=== PATIENT | male | born 1955 | race Caucasian/White ===

== ENCOUNTER → 2018-01-25 10:41 | Outpatient (CLI) | payer MEDICAID, OTHER, SELFPAY ==
[2018-01-25 10:41] VITALS: PULSE 101; PULSE 104; PULSE 109; PULSE 110; PULSE 111; PULSE 80; PULSE 84; O2SAT 83; O2SAT 85; O2SAT 90; O2SAT 92; O2SAT 97
--- NOTE | 2018-01-25 12:14 | CPS ---
PT ARRIVED FROM DR. PATEL OFFICE. PRE TEST SPO2 ON ROOM AIR WAS 85%. PT PLACED ON 2L AND SPO2 INCREASED TO 94% IN WHICH THE TEST WAS INITIATED THEN. AT MINUTE TWO PT INCREASED TO 3L, MINUTE 3 INCREASED TO 4L AND MINUTE FOUR INCREASED TO 6L FOR LOW SPO2. CHRISSY AVALOS AT DR. PATEL OFFICE AWARE AND INFORMED NO FACE TO FACE NEEDED TO BE DONE THAT IN[place] WOULD [place] [facility]. PT INFORMED OF ABOVE AND KNOWS [facility] [place] AT [place]. NO FURTHER NEEDS AT THIS TIME.
--- NOTE | 2018-01-26 09:23 | WT_ITS ---
PSN 6 Minute Walk Test - 6 Minute Walk Test 6 Minute Walk Test: 6 Minute Walk Test PSN:6-Minute Walk Test Start: 01/25/18 12: 09 Freq: Status: Active Protocol: RESP.6MINW Document 01/25/18 10:41 [facility] [place] (Rec: 01/25/18 12:17 [facility] [place] [id number]) 6 Minute Walk Test Date Performed 01/25/18 Time Performed 10:20 Height 5 ft 4 in Weight: 193 lb Weight in Pounds 193.[address]: Elie Hines Assistive device used: None Pre-test Oxygen Delivery Method Room Air Pulse Ox (%) 85 Pulse Rate (60-100 beats/min) 80 Dyspnea Doug Scale (0-10) 3 Exertion Doug Scale (6-20) 8 1st minute Oxygen Flow Rate (L/min) (L/min) 2 Oxygen Delivery Method Nasal Cannula Pulse Ox (%) 90 Pulse Rate (60-100 beats/min) 104 H Number of Rests Taken 0 2nd minute Oxygen Flow Rate (L/min) (L/min) 2 Oxygen Delivery Method Nasal Cannula Pulse Ox (%) 85 Pulse Rate (60-100 beats/min) 109 H Number of Rests Taken 0 3rd minute Oxygen Flow Rate (L/min) (L/min) 3 Oxygen Delivery Method Nasal Cannula Pulse Ox (%) 83 Pulse Rate (60-100 beats/min) 104 H Number of Rests Taken 0 4th minute Oxygen Flow Rate (L/min) (L/min) 4 Oxygen Delivery Method Nasal Cannula Pulse Ox (%) 85 Pulse Rate (60-100 beats/min) 110 H Number of Rests Taken 0 5th minute Oxygen Flow Rate (L/min) (L/min) 6 Oxygen Delivery Method Nasal Cannula Pulse Ox (%) 92 Pulse Rate (60-100 beats/min) 101 H Number of Rests Taken 0 6th minute Oxygen Flow Rate (L/min) (L/min) 6 Oxygen Delivery Method Nasal Cannula Pulse Ox (%) 92 Pulse Rate (60-100 beats/min) 111 H Number of Rests Taken 0 Post-test Oxygen Flow Rate (L/min) (L/min) 6 Oxygen Delivery Method Nasal Cannula Pulse Ox (%) 97 Pulse Rate (60-100 beats/min) 84 Dyspnea Doug Scale (0-10) 5 Exertion Doug Scale (6-20) 13 Number of Rests Taken 0 Full Laps Walked 12 Partial Lap, Number of Tiles Walked 17 Total Distance Walked (ft) 725 01/25/18 12:14 Cardiopulmonary Services by Krista Batres PT ARRIVED FROM DR. JORGE ESTEBAN. PRE TEST SPO2 ON ROOM AIR WAS 85%. PT PLACED ON 2L AND SPO2 INCREASED TO 94% IN WHICH THE TEST WAS INITIATED THEN. AT MINUTE TWO PT INCREASED TO 3L, MINUTE 3 INCREASED TO 4L AND MINUTE FOUR INCREASED TO 6L FOR LOW SPO2. CHRISSY AVALOS AT DR. HINES OFFICE AWARE AND INFORMED NO FACE TO FACE NEEDED TO BE DONE THAT INFORMATION WOULD BE FAXED TO [facility] FOR HOME OXYGEN SET UP. PT INFORMED OF ABOVE AND KNOWS [facility] [place]. NO FURTHER NEEDS AT THIS TIME. Initialized on 01/25/18 12:14 - END OF NOTE - Interpretation Interpretation: The patient ambulated 725 feet over the course of 6 minutes beginning on room air without assistive devices or breaks. Pretesting oxygen saturation was noted to be 85% on room air. The patient was placed on 2 L/min prior to testing. Throughout the course of testing, the patient experienced multiple oxygen desaturations and required an escalation in his supplemental flow rate to 6 L/min. At a flow rate of 6 L/min, the patient was able to complete the remainder of the test while maintaining oxygen saturations at or above 88%. He did develop physiologic tachycardia with exertion. There was evidence of impaired walk distance. - Recommendations Recommendations: 2 L/min of supplemental oxygen should be utilized at rest and 6 L/min should be utilized with exertion. Close interval follow-up is recommended.
== END ==
PROVIDERS: Visit Provider Internal Medicine Critical Care Medicine
DX: J43.2 Centrilobular emphysema (principal); J96.11 Chronic respiratory failure with hypoxia
CPT/HCPCS: 94618

== ENCOUNTER → 2018-01-29 10:50 | Outpatient (CLI) | payer MEDICAID, SELFPAY ==
--- NOTE | 2018-01-29 14:44 | PFTCOMP_ITS ---
COMPLETE PULMONARY FUNCTION TEST INTERPRETATION Brief HPI: Patient is a 62 year old male, currently under the care of myself, who presents to [facility] for complete pulmonary function tests secondary to diagnosis of respiratory failure. Respiratory therapist reports good effort and reproducible results. Interpretation: Forced expiration spirometry shows a very severe large airways obstructive ventilatory defect with an FEV1 of 36 % predicted. There is no significant bronchodilator response by ATS criteria. Spirograms are of good quality and plateau slowly, indicating slowly emptying areas of the lungs. The respiratory flow volume loop shows decreased expiratory flow rates at all lung volumes consistent with airway obstruction. Lung volumes by body plethysmography show an elevated total lung capacity at 7.03 L, 135 % predicted. FRC and RV are elevated out of proportion. Lung volume measurements are consistent with hyperinflation and air-trapping. Diffusion capacity by carbon monoxide is decreased at 26 % predicted. The airway resistance is elevated. No previous pulmonary function tests were available for review. Impression: Irreversible very severe large airways obstructive ventilatory defect with a symmetric reduction in diffusing capacity and resulting in air trapping with hyperinflation. These findings are consistent with advanced COPD.
== END ==
PROVIDERS: Visit Provider Internal Medicine Critical Care Medicine
DX: J96.11 Chronic respiratory failure with hypoxia (principal); J43.2 Centrilobular emphysema
CPT/HCPCS: 94060; 94726; 94729

== ENCOUNTER → 2018-02-28 11:05 | Outpatient (CLI) | payer OTHER, SELFPAY ==
--- NOTE | 2018-02-28 11:06 | ECHOD_ITS ---
Reason For Study: PHTN Procedure This was a 2D Doppler, Color Flow transthoracic echocardiogram. The study was technically difficult. PT sat upright for exam due to SOB and back cramps. Exam performed in department. Left Ventricle Normal LV size. Left ventricular systolic function is normal. The estimated ejection fraction is 60 %. Transmitral diastolic flow velocities suggest mild (stage 1) diastolic dysfunction (reversed pattern). No regional wall motion abnormalities noted. Right Ventricle Normal RV size. Normal systolic function. Atria Normal left atrium. Normal right atrium. Mitral Valve Mitral valve not well visualized. Tricuspid Valve The tricuspid valve is not well visualized. Mild (1+) tricuspid valve insufficiency. Pulmonary artery systolic pressure is 28 mmHg. Aortic Valve Trisinus/trileaflet aortic valve. Mild focal aortic valve calcification. Pulmonic Valve The pulmonic valve is not well visualized. Great Vessels Normal aortic root. The pulmonary artery is normal size. Inferior vena cava collapse with respiration. Pericardium/Pleural No pericardial effusion. MMode/2D Measurements & Calculations LVIDd: 4.2 cm IVSd: 1.1 cm Ao root diam: 3.4 cm LVIDs: 3.0 cm LVPWd: 1.1 cm LA dimension: 3.5 cm RVDd: 3.7 cm FS: 29.7 % LAV(MOD-bp): 46.4 ml LA A4 area: 17.2 cm2 RA A4 area: 14.1 cm2 LAV(MOD-bp) Indexed: 24.1 ml/m2 LAV(MOD-sp2): 44.8 ml LAV(MOD-sp4): 43.5 ml Doppler Measurements & Calculations MV E max zia: 53.8 cm/sec Lat Peak E' Zia: 8.8 cm/sec Med Peak E' Zia: 8.1 cm/sec MV A max zia: 73.9 cm/sec E/E' lat: 6.1 E/E' med: 6.7 MV E/A: 0.73 Ao V2 max: 127.0 cm/sec LV V1 max: 80.3 cm/sec PA V2 max: 99.9 cm/sec Ao max P.5 mmHg LV V1 max P.6 mmHg TR max zia: 244.6 cm/sec TR max P.9 mmHg Interpretation Summary Normal LV size. Left ventricular systolic function is normal. The estimated ejection fraction is 60 %. Mild (1+) tricuspid valve insufficiency. Pulmonary artery systolic pressure is 28 mmHg. Ordering Physician: Elie Hines Referring Physician: Elie Hines Performed By: Angela Ho, DONITA, RVT
== END ==
PROVIDERS: Visit Provider Internal Medicine Critical Care Medicine
DX: I07.1 Rheumatic tricuspid insufficiency (principal)
CPT/HCPCS: 93306

== ENCOUNTER → 2018-04-12 08:00 | Outpatient (CLI) | payer OTHER, SELFPAY ==
--- NOTE | 2018-04-12 11:54 | RAD_ITS ---
STUDY: X-RAY CHEST REASON FOR EXAM: Male, 62 years old. Short of breath. TECHNIQUE: Frontal and lateral views of the chest. COMPARISON: None. FINDINGS: The lungs are hyperexpanded. There are coarsened interstitial markings suggestive of moderate chronic fibrosis. No gross focal infiltrates. Probable pleural parenchymal thickening in the anterior lung bases bilaterally. No gross effusions. Sternal cerclage wires and vascular clips are present from a prior sternotomy and coronary artery bypass graft procedure (CABG). Normal heart size. Normal mediastinum and armida. Normal visualized pulmonary arteries. Normal visualized aortic arch and descending thoracic aorta. Normal visualized thoracic spine. Normal visualized ribs, clavicles, and shoulders. There is no demonstrated abnormality of the visualized soft tissue structures of the upper abdomen. RAD/Chest PA and Lateral IMPRESSION: There are findings consistent with COPD. There is no evidence of acute chest disease. Electronically Signed: Jef Shen MD at 15:06 EDT , Service support ,
== END ==
PROVIDERS: Visit Provider Nurse Practitioner Acute Care
DX: R06.02 Shortness of breath (principal)
CPT/HCPCS: 71046

== ENCOUNTER → 2019-07-09 13:01 | Outpatient (CLI) | payer MEDICARE, SELFPAY ==
[2019-03-06 11:14] VITALS: BMI 32.9
[2019-06-26 10:49] VITALS: BMI 32.9
--- NOTE | 2019-07-09 13:04 | CT_ITS ---
STUDY: CT CHEST WITHOUT CONTRAST- LOW DOSE SCREENING PROTOCOL REASON FOR EXAM: Male, 64 years old. Current smoker. 90 pack per year history. No current symptoms of lung cancer or pulmonary infection. Shared decision-making with referring PCP documented in patient's record. RADIATION DOSAGE (If Supplied By Facility): CTDIvol = ( 3.02 ) mGy, DLP = ( 111.36 ) mGycm TECHNIQUE: Low dose screening CT examination performed from the base of the neck to the upper abdomen. Sagittal and coronal reformatted images performed. Sagittal and coronal MIP images provided. The measurements provided are average, rounded measurements per ACR guidelines. COMPARISON: None. FINDINGS: Status post median sternotomy. Moderate emphysematous changes. No noncalcified nodule or mass. Diffuse mild cylindrical bronchiectasis. There is no demonstrated pleural abnormality. Normal heart and pericardium. There are calcifications of the coronary arteries. Normal mediastinum. Normal hilar regions. Normal unenhanced pulmonary arteries. There is atherosclerotic calcification of the aortic arch with tortuosity and elongation of the aortic arch and descending thoracic aorta. Normal osseous structures. There is no demonstrated abnormality of the visualized upper abdomen. CT/Low Dose CT Lung Screening IMPRESSION: 1. No significant indeterminate incidental findings requiring additional imaging. 2. Incidental findings include moderate emphysema and diffuse mild bronchiectasis.. ASSESSMENT CATEGORY: LungRADS 1 - Negative. Continue annual screening with LDCT in 12 months, per established ACR guidelines. Electronically Signed: Dmitriy Matt MD at 9:46 EDT Tel , Service support ,
== END ==
LOC: CT 13:03
PROVIDERS: Referring Provider Internal Medicine Critical Care Medicine; Visit Provider Internal Medicine Critical Care Medicine
DX: Z12.2 Encounter for screening for malignant neoplasm of respiratory organs (principal); F17.200 Nicotine dependence, unspecified, uncomplicated
CPT/HCPCS: G0297

== ENCOUNTER → 2021-01-05 14:50 | Outpatient (CLI) | payer MEDICARE, SELFPAY ==
--- NOTE | 2021-01-05 14:59 | CT_ITS ---
STUDY: LOW DOSE CT LUNG CANCER SCREENING REASON FOR EXAM: Male, 65 years old. 40 pack-year smoking history. RADIATION DOSAGE (If Supplied By Facility): CTDIvol = ( 2.55 ) mGy, DLP = ( 91.88 ) mGycm TECHNIQUE: No contrast was administered. Low dose technique was utilized (average mAS-38 and kVp 120). 1.25 mm axial source images with a slice interval of 1.25-mm were reconstructed in lung windows. 2.5 mm axial source images with a slice interval of 2.5-mm were reconstructed in lung windows. 5.0 mm axial source images with a slice interval of 5.0-mm were reconstructed in soft tissue windows. Nodule measured using lung windows on PACS and/or independent workstation with automated measurement of minimum and maximum diameter. Nodule measurement reported as average diameter rounded to the nearest whole number. Growth is defined as an increase ins size of greater than 1.5 mm. COMPARISON: 07/09/2019. NODULES: Total lung nodules (excluding granulomas): 0 Emphysema: Diffuse emphysematous changes in lungs without infiltrate. Endobronchial lesion: None Aorta: Stable atherosclerotic changes of the thoracic aorta without aneurysm. Coronary arteries: Stable coronary artery calcifications. Heart: Normal in size. There is evidence of median sternotomy. Pulmonary artery: Normal Mediastinal nodes: Normal Other chest and abdominal findings: CT/Low Dose CT Lung Screening IMPRESSION: Lung-RADS category 1 - Continue annual screening with LDCT in 12 months. IMPORTANT NOTES FOR USE: ACR Lung-RADS Version 1.0 Assessment Categories Release Date: February 23, 2014 Category: Coded 0-4 bases on nodule(s) with highest degree of suspicion. Negative screen is defined as categories 1 and 2; a positive screen is defined as categories 3 and 4. Category 3 and 4A nodules that are unchanged on interval CT should be coded as category 2, and individuals returned to screening in 12 months. Category 4X: Category 3 or 4 nodules with additional imaging findings that increase the suspicion of lung cancer, such as spiculation, GGN that doubles in size in 1 year, enlarged lymph notes, etc. Category Modifiers: S (significant finding unrelated to lung cancer) and C (prior history of treated lung cancer) may be added to the 0-4 Lung-RADS Electronically Signed: Ozzy Barba DO at 23:42 EST Tel [phone], Service support ,
== END ==
PROVIDERS: PCP Family Medicine; Referring Provider Nurse Practitioner Acute Care; Visit Provider Nurse Practitioner Acute Care
DX: Z12.2 Encounter for screening for malignant neoplasm of respiratory organs (principal); F17.210 Nicotine dependence, cigarettes, uncomplicated
CPT/HCPCS: 71271

== ENCOUNTER → 2021-04-22 13:14 | Outpatient (CLI) | payer MEDICARE, SELFPAY ==
[2021-01-25 11:13] VITALS: BMI 32.1
[2021-04-22 13:38] VITALS: PULSE 80; PULSE 81; PULSE 86; PULSE 91; PULSE 92; PULSE 93; PULSE 94; O2SAT 87; O2SAT 89; O2SAT 90; O2SAT 91; O2SAT 92; O2SAT 95
--- NOTE | 2021-04-22 13:40 | CPS ---
Patient states that he wears 4-5 lpm Oxygen at home. Patient came in on own tank at 5 lpm. Performed a room air resting reading, SpO2 87-88% after about 3 minutes. Placed patient back on 4 lpm oxygen and SpO2 recovered to 92%, started testing on 4 lpm.
--- NOTE | 2021-04-22 14:12 | PCM.PSN.6M ---
PSN 6 Minute Walk Test 6 Minute Walk Test 6 Minute Walk Test: 6 Minute Walk Test PSN:6-Minute Walk Test Start: 04/22/21 13:34 Freq: Status: Active Protocol: RESP.6MINW Document 04/22/21 13:38 [facility] (Rec: 04/22/21 13:42 [email or web address] [id number]) 6 Minute Walk Test Date Performed 04/22/21 Time Performed 13:20 Height 5 ft 4 in Weight: 81.647 kg Weight in Pounds 180.[address]: Elie Hines Assistive device used: None Pre-test Oxygen Flow Rate (L/min) (L/min) 4 Oxygen Delivery Method Nasal Cannula Pulse Ox (%) 92 Pulse Rate (60-100 beats/min) 81 Dyspnea Doug Scale (0-10) 0 Exertion Doug Scale (6-20) 6 1st minute Oxygen Flow Rate (L/min) (L/min) 4 Oxygen Delivery Method Nasal Cannula Pulse Ox (%) 91 Pulse Rate (60-100 beats/min) 92 2nd minute Oxygen Flow Rate (L/min) (L/min) 4 Oxygen Delivery Method Nasal Cannula Pulse Ox (%) 89 Pulse Rate (60-100 beats/min) 94 3rd minute Oxygen Flow Rate (L/min) (L/min) 4 Oxygen Delivery Method Nasal Cannula Pulse Ox (%) 87 Pulse Rate (60-100 beats/min) 91 4th minute Oxygen Flow Rate (L/min) (L/min) 5 Oxygen Delivery Method Nasal Cannula Pulse Ox (%) 90 Pulse Rate (60-100 beats/min) 93 5th minute Oxygen Flow Rate (L/min) (L/min) 5 Oxygen Delivery Method Nasal Cannula Pulse Ox (%) 90 Pulse Rate (60-100 beats/min) 86 6th minute Oxygen Flow Rate (L/min) (L/min) 5 Oxygen Delivery Method Nasal Cannula Pulse Ox (%) 90 Pulse Rate (60-100 beats/min) 92 Dyspnea Doug Scale (0-10) 3 Exertion Doug Scale (6-20) 13 Post-test Oxygen Flow Rate (L/min) (L/min) 5 Oxygen Delivery Method Nasal Cannula Pulse Ox (%) 95 Pulse Rate (60-100 beats/min) 80 Full Laps Walked 12 Partial Lap, Number of Tiles Walked 10 Total Distance Walked (ft) 718 04/22/21 13:40 Cardiopulmonary Services by Pushpa Chirinos Patient states that he wears 4-5 lpm Oxygen at home. Patient came in on own tank at 5 lpm. Performed a room air resting reading, SpO2 87-88% after about 3 minutes. Placed patient back on 4 lpm oxygen and SpO2 recovered to 92%, started testing on 4 lpm. Initialized on 04/22/21 13:40 - END OF NOTE Interpretation Interpretation: The patient was noted to be 88% on room air, but improved to 92% on 4 L/min. The patient eventually traveled 718 feet over the course of 6 minutes requiring 5 L nasal cannula with exertion to maintain appropriate saturations. No significant tachycardia was noted. These findings are consistent with a respiratory limitation exercise tolerance. Recommendations Recommendations: The patient requires 4 L nasal cannula at rest, but 5 L with exertion.
== END ==
PROVIDERS: PCP Family Medicine; Referring Provider Internal Medicine Critical Care Medicine; Visit Provider Internal Medicine Critical Care Medicine
DX: J96.11 Chronic respiratory failure with hypoxia (principal); J43.2 Centrilobular emphysema
CPT/HCPCS: 94618

== ENCOUNTER → 2021-04-26 13:00 | Outpatient (CLI) | payer MEDICARE, SELFPAY ==
[2021-01-25 11:13] VITALS: BMI 32.1
--- NOTE | 2021-04-27 09:44 | PFT ---
INTRODUCTION: The patient is a 65-year-old male that presents for pulmonary function studies secondary to a diagnosis of chronic respiratory failure. Respiratory therapy reported good patient effort. Bronchodilators were used during testing. INTERPRETATION: Forced expiration spirometry demonstrates the presence of a severe large airways obstructive ventilatory defect. There was a significant response to aerosolized bronchodilators noted, based upon change in FVC. Spirograms are of good quality but do not plateau indicating slow emptying of the lungs. Body plethysmography was performed and revealed an elevated TLC and RV, indicative of underlying hyperinflation and air trapping. Diffusing capacity by single breath CO is reduced at 32% of predicted. IMPRESSION: Partially reversible severe large airways obstructive ventilatory defect with associated hyperinflation, air trapping and symmetric reduction in diffusing capacity.
== END ==
PROVIDERS: PCP Family Medicine; Referring Provider Internal Medicine Critical Care Medicine; Visit Provider Internal Medicine Critical Care Medicine
DX: J96.11 Chronic respiratory failure with hypoxia (principal); J43.2 Centrilobular emphysema
CPT/HCPCS: 94060; 94726; 94729

== ENCOUNTER 2022-01-13 17:56 | Outpatient (CLI) | payer MEDICARE, SELFPAY ==
--- NOTE | 2022-01-13 18:07 | CT_ITS ---
STUDY: LOW DOSE CT LUNG CANCER SCREENING REASON FOR EXAM: Male, 66 years old. Current smoker. Greater than 40 pack-year history. RADIATION DOSAGE (If Supplied By Facility): CTDIvol = ( 2.39 ) mGy, DLP = ( 83.69 ) mGycm TECHNIQUE: No contrast was administered. Low dose technique was utilized (average mAS-38 and kVp 120). 1.25 mm axial source images with a slice interval of 1.25-mm were reconstructed in lung windows. 2.5 mm axial source images with a slice interval of 2.5-mm were reconstructed in lung windows. 5.0 mm axial source images with a slice interval of 5.0-mm were reconstructed in soft tissue windows. Nodule measured using lung windows on PACS and/or independent workstation with automated measurement of minimum and maximum diameter. Nodule measurement reported as average diameter rounded to the nearest whole number. Growth is defined as an increase ins size of greater than 1.5 mm. COMPARISON: 01/05/2021 NODULES: Total lung nodules (excluding granulomas): 0 Emphysema: Stable emphysematous changes in lungs without new mass or infiltrate. Endobronchial lesion: None Aorta: Stable atherosclerotic changes of the aorta without aneurysm. Coronary arteries: Evidence of prior CABG procedure. Heart: Normal in size Pulmonary artery: Normal Mediastinal nodes: None Other chest and abdominal findings: Mild degenerative changes of the thoracic spine CT/Low Dose CT Lung Screening IMPRESSION: Lung-RADS category 1 - Continue annual screening with LDCT in 12 months. IMPORTANT NOTES FOR USE: ACR Lung-RADS Version 1.1 Assessment Categories Release Date: 2018 Category: Coded 0-4 bases on nodule(s) with highest degree of suspicion. Negative screen is defined as categories 1 and 2; a positive screen is defined as categories 3 and 4. Category 3 and 4A nodules that are unchanged on interval CT should be coded as category 2, and individuals returned to screening in 12 months. Category 4X: Category 3 or 4 nodules with additional imaging findings that increase the suspicion of lung cancer, such as spiculation, GGN that doubles in size in 1 year, enlarged lymph notes, etc. Category Modifiers: S (significant finding unrelated to lung cancer) Electronically Signed: Ozzy aBrba DO at 23:07 EDT Reading Location ID and State: [facility] / [place] Tel [phone], Service support ,
== END 2022-01-13 23:59 | disposition home or self-care (01) ==
PROVIDERS: PCP Family Medicine; Visit Provider Nurse Practitioner Acute Care
DX: Z87.891 Personal history of nicotine dependence (principal)
CPT/HCPCS: 71271

== ENCOUNTER → 2023-01-31 | Outpatient (CLI) | payer MEDICARE, SELFPAY ==
--- NOTE | 2023-01-31 19:17 | CT_ITS ---
STUDY: LOW DOSE CT LUNG CANCER SCREENING REASON FOR EXAM: Male, 67 years old. Greater than 40 pack-year smoking history RADIATION DOSAGE (If Supplied By Facility): CTDIvol = ( 3.02 ) mGy, DLP = ( 112.12 ) mGycm TECHNIQUE: No contrast was administered. Low dose technique was utilized (average mAS-38 and kVp 120). 1.25 mm axial source images with a slice interval of 1.25-mm were reconstructed in lung windows. 2.5 mm axial source images with a slice interval of 2.5-mm were reconstructed in lung windows. 5.0 mm axial source images with a slice interval of 5.0-mm were reconstructed in soft tissue windows. COMPARISON: 01/13/2022 FINDINGS: Lung windows again demonstrated severe underlying emphysema. Chronic interstitial changes noted in both lung avery with nonspecific pleural thickening. Blood formation noted throughout both lung avery as well. Minimal bibasilar atelectasis. No organized infiltrate or effusion. Limited soft tissue windows show normal-appearing thyroid gland. No suspicious adenopathy. Evidence of remote CABG. No pericardial effusion. Bony structures show degenerative change. Limited cuts through the upper abdomen do not show a suspicious abnormality, there is a bowel loop interposed between the anterior edge of the liver and the peritoneal surface which can be a source of pain in the right clinical setting. Overall, no significant interval change since the previous study. CT/Low Dose CT Lung Screening IMPRESSION: Lung-RADS category 2 - Continue annual screening with LDCT in 12 months. IMPORTANT NOTES FOR USE: ACR Lung-RADS Version 1.1 Assessment Categories Release Date: 2018 Category: Coded 0-4 bases on nodule(s) with highest degree of suspicion. Negative screen is defined as categories 1 and 2; a positive screen is defined as categories 3 and 4. Category 3 and 4A nodules that are unchanged on interval CT should be coded as category 2, and individuals returned to screening in 12 months. Category 4X: Category 3 or 4 nodules with additional imaging findings that increase the suspicion of lung cancer, such as spiculation, GGN that doubles in size in 1 year, enlarged lymph notes, etc. Category Modifiers: S (significant finding unrelated to lung cancer) Electronically Signed: He Erwin MD at 10:38 EDT ,
== END | disposition home or self-care (01) ==
LOC: CT 19:17
PROVIDERS: PCP Family Medicine; Visit Provider Nurse Practitioner Acute Care
DX: F17.210 Nicotine dependence, cigarettes, uncomplicated (principal)
CPT/HCPCS: 71271